=== PATIENT | male | born 1930 | race Caucasian/White ===

== ENCOUNTER 2016-08-30 07:46 | Day surgery (SDC) | payer OTHER ==
[~2016-08-30] VITALS: Ht 180.3 cm; Wt 68.9 kg
[~2016-08-30 07:46] MED LIST: ARTHRITIS PAIN650 M1 PO; ASPIRIN81 M1 PO; BENAZEPRIL HCL10 MG PO; DAILY VITAMIN1 EAC4 PO; ELIQUIS2.5 MG PO; HYDROCHLOROTH12.5 M3 PO; L-LYSINE500 M1 PO; LO-DOSE ASPIRIN81 M2 PO; LOPRESSOR25 MG PO; LOTREL 10/41 CAPSULE PO; LOTREL 5/401 CAPSULE PO; LYRICA25 MG PO; LYRICA75 MG PO; MACULAR VITAMI1 EACH PO; METOPROLOL SUCC25 MG PO; METRO CREAM 0.745 GM TP; MULTI VIT; PRAVASTATIN SOD10 MG PO; TYLENOL EXTRA500 MG PO
[2016-08-30 08:37] VITALS: BP 154/62
[2016-08-30 13:01] VITALS: BP 169/91
[2016-08-30 14:15] VITALS: BP 123/55
== END 2016-08-30 14:19 | disposition home or self-care (01) ==
LOC: SDC 07:46
DX: H33.8 Other retinal detachments (principal); H35.3210 Exudative age-related macular degeneration, right eye, stage unspecified; H43.11 Vitreous hemorrhage, right eye; H57.8 Other specified disorders of eye and adnexa; I10 Essential (primary) hypertension; I50.9 Heart failure, unspecified; Z79.82 Long term (current) use of aspirin
CPT/HCPCS: J0690; J0713; J2997